=== PATIENT | male | born 1975 | race Caucasian/White ===

== ENCOUNTER → 2016-12-31 | Outpatient (CLI) | payer OTHER | END | disposition disaster alternative care site (69) | LOC: GRAD 12:43 | DX: J33.9 Nasal polyp, unspecified (principal) ==

== ENCOUNTER → 2017-01-04 | Outpatient (CLI) | payer OTHER ==
[2017-01-04 10:47] LABS: INR - (THERAPEUTIC) 1.1 (0.9-1.1); PROTIME 11.1 SECONDS (9.6-11.1)
== END | disposition disaster alternative care site (69) ==
LOC: LGSMG 10:17
PROVIDERS: Internal Medicine
DX: Z01.818 Encounter for other preprocedural examination (principal)

== ENCOUNTER 2017-03-15 12:41 | Emergency (ER) | payer OTHER ==
--- NOTE | ~2017-03-15 | ER ---
PATIENT'S NAME: GOLDEN CROWE [facility] AGE: 41 Y [address] ROOM: [place] [address] LOCATION: [facility] ADMIT DATE: 03/15/2017 ER/Outpatient Report DISCHARGE DATE: 03/15/2017 FAMILY PHYSICIAN: eJsus Fonseca MD ATTENDING PHYSICIAN: Luciano Parish CHIEF COMPLAINT: Left lower leg laceration. HISTORY OF PRESENT ILLNESS: The patient initially was seen by Dr. Luciano Parish, the patient was assessed and intake was taken. Please see his dictation for further details. I did perform the procedure and laceration closure. The wound was measured, measuring 3.5 cm x 4.5 cm in the shape of a V. I was able to see just the top layer of the muscle, but there was no tendon exposure. The bleeding was minimal, no foreign body identified, and the wound bed was within normal limits. The area was flushed well with normal saline, also cleaned with Betadine. The wound was anesthetized with 1% lidocaine without epinephrine. He did tolerate this well. He did have a little bit of diaphoresis and feeling a little woozy in which we did lay him back, wash cloth to the head and then he felt much better. Using a 4-0 Prolene, I was able to provide 11 interrupted sutures in which this closed very well. I was able to line up the edges in which it was well-approximated. Triple antibiotic to the sutures, Telfa and also Coban were placed. Wound care instructions are given to the patient, he is going to avoid any bending, kneeling, or squatting over the next 3 to 5 days. He will follow up with his primary care physician in the next 10 to 12 days for suture removal. He will call sooner if there are any signs and symptoms of infection which were reviewed over extensively. J LUIS TENA APRN FOR DO LILIANE GONZALEZ/marcin /[id number] d: 03/15/171940 t: 03/17/17920, OUTPATIENT REPORT
--- NOTE | ~2017-03-15 | ER ---
PATIENT'S NAME: GOLDEN CROWE [facility] AGE: 41 Y [address] ROOM: [place] [address] LOCATION: [facility] ADMIT DATE: 03/15/2017 ER/Outpatient Report DISCHARGE DATE: FAMILY PHYSICIAN: Jesus Fonseca MD ATTENDING PHYSICIAN: Luciano Parish Time of arrival: 1306 hours. Time of evaluation: 1309 hours. CHIEF COMPLAINT: Laceration. HISTORY OF PRESENT ILLNESS: The patient is a 41-year-old male, who presents to the emergency department today with a chief complaint of laceration of left leg. He reports he was doing box jumps for exercise when he did not quite make the box and cut his left anterior delacruz. He reports that it is sharp pain and it is currently mild in severity. It is worse with movement. He is able to ambulate. Denies any head injury. PAST MEDICAL HISTORY: Hypertension. PAST SURGICAL HISTORY: 1. Abdominal hernia. 2. Sinus polyp removal. 3. Discectomy. 4. Pyloric stenosis as an . SOCIAL HISTORY: The patient denies any tobacco, alcohol, or illicit drug use. ALLERGIES: NO KNOWN DRUG ALLERGIES. MEDICATIONS: Please see list. IMMUNIZATIONS: Unsure on tetanus status. REVIEW OF SYSTEMS: All systems are reviewed by myself and negative with the exception of those discussed in HPI and past medical history. PATIENT'S NAME: GOLDEN CROWE [facility] AGE: 41 Y [address] ROOM: [place] [address] LOCATION: [facility] ADMIT DATE: 03/15/2017 ER/Outpatient Report DISCHARGE DATE: FAMILY PHYSICIAN: Jesus Fonseca MD ATTENDING PHYSICIAN: Luciano Parish PHYSICAL EXAMINATION: VITAL SIGNS: Weight 97.3 kg, blood pressure 176/98, pulse 113, respiratory rate 18, temperature 98, oxygen saturation 96% on room air. GENERAL: The patient is a 41-year-old male, appears stated age, in no acute distress. HEENT: Head is normocephalic and atraumatic. NECK: Supple. There is no nuchal rigidity. CARDIOVASCULAR: Tachycardic. No murmurs, rubs, or gallops. LUNGS: Clear to auscultation bilaterally. No wheezes, rales, or rhonchi. ABDOMEN: Soft, nontender, and nondistended. No rebound, rigidity, or guarding. MUSCULOSKELETAL: The patient moves all 4 extremities. 5/5 muscle strength. SKIN: There is a v-shaped laceration that is 3.5 cm x 4.5 cm. This is gaping now. LABORATORY DATA AND X-RAYS: None. IMPRESSION: 1. An 8.0 cm laceration to left anterior delacruz with simple repair. 2. Initial visit. EMERGENCY DEPARTMENT COURSE: The patient was brought back to the examination room. The patient is seen and evaluated by myself. The patient's wound is noted, he does have minimal pain on palpation. He is able move all extremities. The wound is explored. It does penetrate to the fascial plane. I have discussed this with the patient repair. He does wish to proceed. The wound is repaired by Daisy Graves, nurse practitioner. Please see her procedural note. The patient's tetanus is updated. I have discussed wound care with the patient. I have discussed suture removal in 10 to 14 days. I have discussed return to care for any worsening symptoms or any other concerns. DISPOSITION: The patient is discharged to home in good condition. DO FELICITAS GONZALEZ/marcin /[id number] d: 03/15/17 1408 t: 03/15/17 1610, OUTPATIENT REPORT
== END 2017-03-15 14:04 | disposition disaster alternative care site (69) ==
LOC: GACC 12:41
PROC: 0HQLXZZ Repair Left Lower Leg Skin, External Approach (ICD-10-PCS; principal; 2017-03-15)
DX: S81.812A Laceration without foreign body, left lower leg, initial encounter (principal); I10 Essential (primary) hypertension; Z98.890 Other specified postprocedural states; Z23 Encounter for immunization; Z79.899 Other long term (current) drug therapy; W26.8XXA Contact with other sharp object(s), not elsewhere classified, initial encounter